=== PATIENT | male | born 1945 | race Caucasian/White ===

== ENCOUNTER 2016-12-27 11:15 | Inpatient (IN) | payer BC, OTHER ==
[2017-01-04] MEDS ORDERED: ceFAZolin 2 GM/DEXTROSE 100 ML IV ONE (06:00)
[2017-01-04] MEDS ORDERED: DEXAMETHASONE 10 MG/ML VIAL IVP ONE (06:00)
[2017-01-10] MEDS ORDERED: CHLORHEXIDINE GLUC HIBICLENS 118 ML BTL TP ONE ×2 (07:00→11:06)
[2017-01-10] MEDS ORDERED: DEXAMETHASONE 10 MG/ML VIAL IVP ONE (07:00)
[2017-01-10] MEDS ORDERED: ceFAZolin 2 GM/DEXTROSE 100 ML IV ONE (07:00)
[2017-01-10] MEDS ORDERED: BUPIVACAINE 0.25% 30 ML SDV ONE (10:28)
[2017-01-10] MEDS ORDERED: CITRATE DEXTROSE SOLN 500 ML BAG ONE (10:28)
[2017-01-10] MEDS ORDERED: THROMBIN (BOVINE) 5,000 UNIT VIAL TP ONE (10:28)
[2017-01-10] MEDS ORDERED: BACITRACIN 50,000 UNITS/10 ML SYR IRR ONE (10:29)
[2017-01-10] MEDS ORDERED: BUPIVACAINE/EPI 0.25% 30 ML SDV ONE (10:29)
[2017-01-10] MEDS ORDERED: PROPOFOL/EMULSION 500 MG/50 ML BOTTLE IV ONE ×2 (10:57→11:42)
[2017-01-10] MEDS ORDERED: LR 1,000 ML IV ONE (11:00)
[2017-01-10] MEDS ORDERED: LIDOCAINE 1% 5 ML SDV ID PRN (11:00)
[2017-01-10] MEDS ORDERED: MIDAZOLAM 2 MG/2 ML VIAL ONE (11:04)
[2017-01-10] MEDS ORDERED: CEFAZOLIN 2 GM/DEXTROSE/100 ML BAG IV ONE (11:07)
[2017-01-10] MEDS ORDERED: DEXAMETHASONE 4 MG/ML VIAL ONE (11:07)
[2017-01-10] MEDS ORDERED: fentaNYL 100 MCG/2 ML INJ ONE ×4 (11:21→15:27)
[2017-01-10] MEDS ORDERED: REMIFENTANIL HCL 1 MG VIAL ONE ×2 (11:40→11:41)
[2017-01-10] MEDS ORDERED: LACTULOSE 20 GM/30 ML UDCUP PO PRN (15:13)
[2017-01-10] MEDS ORDERED: ONDANSETRON 4 MG/2 ML VIAL IVP PRN (15:13)
[2017-01-10] MEDS ORDERED: DIAZEPAM 10 MG/2 ML SYR IVP PRN (15:13)
[2017-01-10] MEDS ORDERED: diphenhydrAMINE 25 MG CAP PO PRN (15:13)
[2017-01-10] MEDS ORDERED: HYDROmorphONE/DILAUDID 1 MG/ML SYR IVP PRN (15:13)
[2017-01-10] MEDS ORDERED: DIAZEPAM 5 MG TAB PO PRN (15:13)
[2017-01-10] MEDS ORDERED: BISACODYL 10 MG SUPP PR PRN (15:13)
[2017-01-10] MEDS ORDERED: ACETAMINOPHEN 325 MG TAB PO PRN (15:13)
[2017-01-10] MEDS ORDERED: HYDROmorphONE/DILAUDID 6 MG/30 ML PCA IV PRN (15:13)
[2017-01-10] MEDS ORDERED: ONDANSETRON DISINTEGRATING 4 MG TAB PO PRN (15:13)
[2017-01-10] MEDS ORDERED: POLYETHYLENE GLYCOL 3350 17 GM PKT PO PRN (15:13)
[2017-01-10] MEDS ORDERED: NALOXONE HCL 0.4 MG/ML INJ IVP PRN (15:13)
[2017-01-10] MEDS ORDERED: MAGNESIUM HYDROXIDE 30 ML UDCUP PO PRN (15:13)
[2017-01-10] MEDS ORDERED: NS W/ 20 KCl/L 1,000 ML IV SCH (15:15)
--- NOTE | 2017-01-10 15:18 | SOAPPROG ---
SOAP Progress Note Assessment/Plan: Assessment: 71 yo M sp C4/5 ACDF and C3-7 laminoplasty Plan: stable to 3N soft collar x-rays in am please call with neuro changes 01/10/17 15:17 Subjective: + neck pain, no arm pain. Objective: somnolent PERRL, no facial droop JOHN x 4 + light touch ICD10 Worksheet Patient Problems: Problems Problem Status Onset Fusion of spine of cervical region Acute - ICD10 Problem Qualifiers (1) Fusion of spine of cervical region
[2017-01-10] MEDS ORDERED: DIAZEPAM 10 MG/2 ML SYR ONE (15:38)
[2017-01-10] MEDS ORDERED: HYDROmorphONE/DILAUDID 1 MG/ML SYR ONE (16:08)
[2017-01-10] MEDS ORDERED: hydrALAZINE 20 MG/ML VIAL IVP ONE (18:00)
[2017-01-10] MEDS: METHOCARBAMOL 750 MG TAB PO PRN (19:32)
[2017-01-10] MEDS: HYDROCODONE/APAP 10/325 TAB PO PRN ×2 (19:32→21:03)
[2017-01-10] MEDS: SENNOSIDES/DOCUSATE SODIUM TAB PO SCH (19:34)
[2017-01-10] MEDS: FAMOTIDINE 20 MG TAB PO SCH (19:34)
[2017-01-10] MEDS ORDERED: FAMOTIDINE 20 MG/NACL 50 ML IV SCH (21:00)
[2017-01-10] MEDS: oxyCODONE IR 5 MG TAB PO PRN (22:31)
[2017-01-11] MEDS: HYDROCODONE/APAP 10/325 TAB PO PRN ×4 (02:36→22:34)
[2017-01-11] MEDS: METHOCARBAMOL 750 MG TAB PO PRN ×2 (02:36→22:34)
[2017-01-11 05:46] LABS: % IMMATURE GRANULYOCYTES 0.7 % (0.0-1.1); ABSOLUTE IMMATURE GRANULOCYTES 0.08 10^3/uL (0.00-0.10); ADD DIFF? NO; ADD MORPH? NO; ADD SCAN? NO; ATYPICAL LYMPHOCYTE FLAG 0 (0-99); FRAGMENT RBC FLAG 0 (0-99); HEMATOCRIT 42.5 % (40.0-51.0); LEFT SHIFT FLG 0 (0-99); LIPEMIA HEMOLYSIS FLAG 80 (0-99); MEAN CELL HEMOGLOBIN 29.3 pg (27.9-34.1); MEAN CELL HEMOGLOBIN CONCENTR. 32.9 g/dL (32.4-36.7); MEAN CELL VOLUME 88.9 fL (81.5-99.8); MEAN PLATELET VOLUME 11.6 fL (8.7-11.7); PLATELET CLUMPS FLAG 0 (0-99); PLATELET COUNT 177 10^3/uL (150-400); RED BLOOD CELL COUNT 4.78 10^6/uL (4.40-6.38); RED CELL DISTRIBUTION WIDTH 14.8 % (11.5-15.2)
[2017-01-11 06:15] LABS: ANION GAP 13 mEq/L (8-16); CALCIUM 8.8 mg/dL (8.5-10.4); CARBON DIOXIDE 21 mEq/l (22-31); CHLORIDE 105 mEq/L (97-110); GLUCOSE 154 mg/dL (70-100); POTASSIUM 4.5 mEq/L (3.5-5.2); SODIUM 139 mEq/L (134-144)
[2017-01-11 06:32] LABS: CREATININE 0.9 mg/dL (0.7-1.3); GLOMERULAR FILTRATION RATE > 60
[2017-01-11] MEDS: oxyCODONE IR 5 MG TAB PO PRN ×4 (06:34→17:12)
--- NOTE | 2017-01-11 07:01 | GOP ---
[f rep st] OPERATIVE REPORT DATE OF OPERATION: 01/10/2017 SURGEON: Herb Hess MD EXPERIMENTAL MACHINING LAB MANAGER: Chris Antonio. ANESTHESIA: General endotracheal. 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 Prior C5-6 fusion with instrumentation. Severe adjacent level degeneration and disk herniation with spinal cord compression at C4-5. 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 Prior C5-6 fusion with instrumentation. Severe adjacent level degeneration and disk herniation with spinal cord compression at C4-5. PROCEDURE PERFORMED: Removal of C5-6 anterior cervical plate with exploration of spinal fusion, and C4-5 complete anterior cervical diskectomy and arthrodesis with an 11 mm structural PEEK interbody spacer, local autograft, and placement of a [employer] anterior cervical plate with self-drilling screws. Use of intraoperative microscopy and fluoroscopy. FINDINGS: ESTIMATED BLOOD LOSS: 75 cc. INDICATIONS: The patient is a 71-year-old man who has a history of a prior C5- 6 instrumented fusion with severe adjacent level degeneration and disk herniation with spinal cord compression at the C4-5 level, and multilevel cervical spondylosis and spinal stenosis with cord compression throughout C3 through C7. He presents now for anterior revision of his prior surgery and posterior decompression and stabilization and laminoplasty for all of the levels , including the fused segments. DESCRIPTION OF PROCEDURE: After informed consent was obtained, the patient was taken to the operating room and placed in the supine position with the head in the halter retractor system. The anterior cervical region was prepped and draped in a sterile fashion. After fluoroscopic localization of the correct levels, the subcutaneous and intramuscular tissues were infiltrated with local anesthesia. A horizontal incision was then created at the level of the C5 vertebral body. This was carried through the platysmal layer using the monopolar cautery in the avascular plane between the sternocleidomastoid and carotid sheath laterally and the strap muscles, trachea, and esophagus medially down to the prevertebral fascia, which was carefully incised with Metzenbaum scissors. There was an extensive amount of scar tissue that was very carefully dissected out and the prior plate was carefully exposed and removed at C5-6. The prior fusion was explored and inspected, and noted to be solid. Following this, the large osteophytes at the C4-5 level were removed, and the Portia distraction pins inserted. Under high-power microscopic visualization, a complete C4-5 anterior cervical diskectomy was then performed with removal of the posterior longitudinal ligament along with an extensive amount of calcified disk material protruding into the spinal canal and causing spinal cord compression. Bilateral foraminotomies were also performed. Following adequate decompression, the remaining endplates were carefully prepared and an appropriately sized 11 mm structural PEEK interbody spacer packed with local autograft in the center was placed at the C4-5 interspace. The distraction was removed and an appropriately size [employer] [place] anterior cervical plate was then placed and secured with self-drilling screws. Following verification of good position, the locking mechanism was engaged and following reverification of good position of the plate, screws, and interbody spacers using biplanar fluoroscopy, the anterior hole of the plate was gently packed with residual autograft. A drain was placed. The subcutaneous and intramuscular tissues were infiltrated with local anesthesia and closed in a layered fashion using interrupted Vicryl sutures followed by Steri-Strips on the skin. COMPLICATIONS: None. DISPOSITION: The patient remained intubated and was repositioned prone. /[id number]/MODL MTDD
--- NOTE | 2017-01-11 07:05 | GOP ---
[f rep st] OPERATIVE REPORT DATE OF OPERATION: 01/10/2017 SURGEON: Herb Hess MD NURSING CONSULTANT: Chris Antonio. ANESTHESIA: General endotracheal. 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 Prior C5-6 fusion with instrumentation. Severe adjacent level degeneratio n and disk herniation with spinal cord compression at C4-5. 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 Prior C5-6 fusion with instrumentation. Severe adjacent level degenerati on and disk herniation with spinal cord compression at C4-5. PROCEDURE PERFORMED: C4 through 6 posterior fusion with C3 through C7 laminoplasty procedure for de compression of spinal canal. FINDINGS: ESTIMATED BLOOD LOSS: 100 cc. DESCRIPTION OF PROCEDURE: After the anterior portion of the procedure was completed, the patient wa s repositioned posteriorly with the head in the [place] head cd reactor operator. The posterior cervical region was prepped and draped in a sterile fashion and after fluoroscopic localization of the correct leve l, the subcutaneous and intramuscular tissues were infiltrated with local anesthesia. A midline bridget ear incision was then created from approximately C3 through C7. This was carried down the fascial l bryan, which was incised using monopolar electrocautery and carried in the subfascial plane along the spinous processes and lamina bilaterally. The facet joint was exposed on the left then on the righ t. Following re-verification of the correct levels, a trough was drilled on the right side between the lamina and facet joint all the way from C3 through C7. Note that this trough left the inner cor tical table intact as a hinge. A second trough was then drilled between the lamina and facet joint at C3 through C7. This went all the way through the inner table of the lamina and following this, e ach lamina was cracked up and the [employer] center piece and grafting system was utilized to perform a laminoplasty with 8 and 6 mm self-drilling screws. Following this, the wound was copiously irrig ated with antibiotic irrigation and meticulous hemostasis was achieved. The facet joints were then drilled out at C4-5 and C5-6 bilaterally and any local autograft from the drilling was placed in tho se joints in order to reinforce the anterior fusion at C4-5 and C5-6. Following the two-level fusio n, the wound was irrigated again and the subcutaneous and intramuscular tissues were re-infiltrated with local anesthesia. A drain was placed and the wound was closed in a layered fashion using inter rupted Vicryl sutures, followed by Steri-Strips on the skin. COMPLICATIONS: None. INDICATIONS FOR PROCEDURE: The patient is a 71-year-old man who has a history of a prior C5-6 instr umented fusion with severe adjacent level degeneration and disk herniation with spinal cord compress ion at the C4-5 level, and multilevel cervical spondylosis and spinal stenosis with cord compression throughout C3 through C7. He presents now for anterior revision of his prior surgery and posterior decompression and stabilization and laminoplasty for all of the levels, including the fused segment s. DISPOSITION: The patient is currently in the process of being repositioned for extubation. /[id number]/MODL
[2017-01-11] MEDS: SENNOSIDES/DOCUSATE SODIUM TAB PO SCH ×2 (09:17→22:34)
[2017-01-11] MEDS: TERAZOSIN HCL 5 MG CAP PO SCH (09:17)
[2017-01-11] MEDS: PANTOPRAZOLE SODIUM 40 MG TAB PO SCH (09:19)
[2017-01-11] MEDS: CYANO/VITAMIN B12 1000 MCG TAB PO SCH (09:21)
[2017-01-11] MEDS: FAMOTIDINE 20 MG TAB PO SCH ×2 (09:21→22:35)
--- NOTE | 2017-01-11 09:55 | NEUSURGPN ---
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 Pain management JAMES drain x 2 - continue D/w Dr John please call with neuro changes Subjective: Pt resting in bed, pain well managed Objective: AAOx3 NAD VSS MAEx4 Motor 5/5 BUE/BLE Incisions cdi dressed JPx2 Gilliam out Urinary Catheter in Place: No Catheter Insertion Date: 01/10/17 - Physician Discussed Patient with DrAjay: Deshawn Neurosurgery Physical Exam - Vitals, I&O, Labs I and O 01/10/17 01/11/17 01/12/17 05:59 05:59 05:59 Intake Total 4485 Output Total 1955 1250 Balance 2530 -1250 Weight 83.915 kg Intake: Oral (ml) 1060 IV Intake (ml) 2425 IV Infused (ml) 1000 NS W/ 20 KCl/L 1,000 ml @ 900 75 mls/hr IV CONT LEFTY Rx #:[id number] ceFAZolin 1 GM/DEXTROSE 100 50 ml @ 200 mls/hr IV Q8H LEFTY Rx#:[id number] Output: Urine (ml) 1575 1250 Catheter 1575 900 Urinal 350 Estimated Blood Loss (ml) 150 Wound Drainage (ml) 230 Anterior Neck Greg 90 Nickerson Posterior Neck Greg 140 Nickerson Other: Intake Quantity Yes Sufficient Number of Voids Urinal 1 Vital Signs Temp Pulse Resp BP Pulse Ox 36.8 C 86 14 137/80 H 92 01/11/17 07:29 01/11/17 07:29 01/11/17 07:29 01/11/17 07:29 01/11/17 07:29 Laboratory Results 01/11/17 04:36 01/11/17 04:36 ICD10 Worksheet Patient Problems: Problems Problem Status Onset Fusion of spine of cervical region Acute
[2017-01-11] MEDS: DUTASTERIDE 0.5 MG CAP PO SCH (10:56)
[2017-01-12] MEDS: oxyCODONE IR 5 MG TAB PO PRN ×3 (03:58→15:10)
[2017-01-12] MEDS: HYDROCODONE/APAP 10/325 TAB PO PRN ×2 (05:10→11:26)
[2017-01-12] MEDS: METHOCARBAMOL 750 MG TAB PO PRN (05:10)
--- NOTE | 2017-01-12 08:45 | SOAPPROG ---
SOAP Progress Note Assessment/Plan: Assessment: 71 yo M POD #3 C4/5 ACDF and C3-7 laminoplasty Plan: stable and doing well overall :) PT/OT soft collar x-rays show good position of hardware likely dc home today please call with neuro changes discussed with Dr Tejada 01/10/17 15:17 01/12/17 08:41 Subjective: continued posterior neck pain, no arm pain, no weakness. Objective: Vital Signs Temp Pulse Resp BP Pulse Ox 36.8 C 92 16 155/91 H 90 L 01/12/17 04:00 01/12/17 04:00 01/12/17 04:00 01/12/17 04:00 01/12/17 04:00 Laboratory Results 01/11/17 04:36 01/11/17 04:36 01/11/17 01/12/17 01/13/17 05:59 05:59 05:59 Intake Total 4485 400 Output Total 1955 3730 Balance 2530 -3330 AAOx4, +FC PERRL, EOMI, no facial droop 5/5 + light touch C/D/I x 2 ICD10 Worksheet Patient Problems: Problems Problem Status Onset Fusion of spine of cervical region Acute - ICD10 Problem Qualifiers (1) Fusion of spine of cervical region
[2017-01-12] MEDS: SENNOSIDES/DOCUSATE SODIUM TAB PO SCH (08:55)
[2017-01-12] MEDS: DUTASTERIDE 0.5 MG CAP PO SCH (08:55)
[2017-01-12] MEDS: PANTOPRAZOLE SODIUM 40 MG TAB PO SCH (08:56)
[2017-01-12] MEDS: FAMOTIDINE 20 MG TAB PO SCH (08:56)
[2017-01-12] MEDS: TERAZOSIN HCL 5 MG CAP PO SCH (08:57)
[2017-01-12] MEDS: CYANO/VITAMIN B12 1000 MCG TAB PO SCH (08:57)
[2017-01-12 11:48] VITALS: BP 147/96; PULSE 95; RESP 14; TEMP 98; O2SAT 90
[2017-01-13] MEDS ORDERED: ENOXAPARIN 40 MG/0.4 ML SYR SC SCH (09:00)
== END 2017-01-12 15:20 | disposition home or self-care (01) | DRG 454 ==
LOC: F3E 01-10 10:05 → F3N 01-10 17:25
PROVIDERS: ADMIT Neurological Surgery; ATTEND Neurological Surgery
DX: M48.02 Spinal stenosis, cervical region (principal); M47.12 Other spondylosis with myelopathy, cervical region; M50.321 Other cervical disc degeneration at C4-C5 level; Z98.1 Arthrodesis status; N40.0 Benign prostatic hyperplasia without lower urinary tract symptoms
CPT/HCPCS: 97161-GP; 97165-GO; C1713; J0360; J0690; J1100; J1170; J2250; J2704; J3010; J7060

== ENCOUNTER → 2017-06-01 | Outpatient (CLI) | payer OTHER ==
[~2017-06-01] MED LIST: DEXAMETHASONE 4 MG/ML VIAL ONE; LIDOCAINE 2% 5 ML SDV ONE; ONDANSETRON 4 MG/2 ML VIAL ONE; PROPOFOL 200 MG/20 ML VIAL ONE; RANITIDINE 50 MG/2 ML VIAL ONE; ROCURONIUM 50 MG/5 ML VIAL ONE; SUGAMMADEX SODIUM 200 MG/2 ML VIAL IVP ONE; ceFAZolin 1 GM VIAL ONE; epHEDrine SULFATE 10 MG/ML SYR ONE
== END ==
LOC: FIMAGING 14:35 → EDSTATUS 14:36
PROVIDERS: ATTEND Physician Assistant Surgical
DX: M50.31 Other cervical disc degeneration, high cervical region (principal); M47.22 Other spondylosis with radiculopathy, cervical region; G95.89 Other specified diseases of spinal cord; Z98.1 Arthrodesis status
CPT/HCPCS: J0690; J1100; J2405; J2704; J2780

== ENCOUNTER 2017-06-02 09:14 | Inpatient (IN) | payer OTHER ==
--- NOTE | 2017-06-02 16:45 | PDGENHP ---
History & Physical Chief Complaint: Low back pain History of Present Illness: Mr Singleton has low back pain. He describes pain in his back with pain in his legs. He had a severe flare up of pain in his legs several weeks ago and his symptoms improved with a lumbar epidural injection. He describes some numbness with some pain in his hamstrings that is worse with driving and standing. He is not having leg weakness or bowel/bladder problems. His pain level is 3-4 (1-10). He describes 20% back pain and 80% leg symptoms. Mr Singleton feels that his balance is off and he has been having some urinary urgency. He has tried Physical Therapy, epidural injections, tylenol, NSAIDs, heat, ice and activity modification with no improvement. His legs numbness is currently worse in his right leg. Pertinent Past, Social, Family History: . family history: cancer and diabetes. Medical History: The previous medical history is significant for osteoarthritis, hearing impaired, kidney stones. . The previous surgical history is significant for: 1. inguinal hernia 2016. 2. fusion C5-C6 2000. 3. right ACL replacement 1997. Social History: Alcohol Consumption: socially. Never Smoked Relevant Physical Exam: Awake, alert, oriented X4. PERRL. No facial droop. 5/ 5 Strength in upper and lower extremities. except his right triceps which is 3/ 5. Normal Sensation in arms and legs. Deep Tendon Reflexes 1+/4 in upper and lower extremities
[2017-06-03] MEDS ORDERED: NS IV ONE (07:56)
[2017-06-03] MEDS ORDERED: ACETAMINOPHEN 500 MG TAB PO ONE (07:56)
[2017-06-03] MEDS ORDERED: TRANEXAMIC ACID IV ONE (07:56)
[2017-06-03] MEDS ORDERED: GABAPENTIN 300 MG CAP PO ONE (07:56)
[2017-06-03] MEDS ORDERED: fentaNYL 100 MCG/2 ML INJ IT ONE (07:56)
[2017-06-03] MEDS ORDERED: ceFAZolin 2 GM/DEXTROSE 100 ML IV ONE (07:56)
[2017-06-03] MEDS ORDERED: morphINE PF 5 MG/10 ML INJ IT ONE (07:56)
[2017-06-03] MEDS ORDERED: LR 1,000 ML IV ONE (07:57)
[2017-06-03] MEDS ORDERED: LIDOCAINE 1% 2 ML INJ ID PRN (07:57)
[2017-06-03 08:23] LABS: % IMMATURE GRANULYOCYTES 0.2 % (0.0-1.1); ABSOLUTE IMMATURE GRANULOCYTES 0.01 10^3/uL (0.00-0.10); ADD DIFF? NO; ADD MORPH? NO; ADD SCAN? NO; ATYPICAL LYMPHOCYTE FLAG 10 (0-99); FRAGMENT RBC FLAG 0 (0-99); HEMATOCRIT 44.5 % (40.0-51.0); HEMOGLOBIN 14.5 g/dL (13.7-17.5); LEFT SHIFT FLG 0 (0-99); LIPEMIA HEMOLYSIS FLAG 80 (0-99); MEAN CELL HEMOGLOBIN 28.7 pg (27.9-34.1); MEAN CELL HEMOGLOBIN CONCENTR. 32.6 g/dL (32.4-36.7); MEAN CELL VOLUME 88.1 fL (81.5-99.8); MEAN PLATELET VOLUME 10.2 fL (8.7-11.7); PLATELET CLUMPS FLAG 0 (0-99); PLATELET COUNT 269 10^3/uL (150-400); RED BLOOD CELL COUNT 5.05 10^6/uL (4.40-6.38); RED CELL DISTRIBUTION WIDTH 14.3 % (11.5-15.2)
[2017-06-03] MEDS ORDERED: THROMBIN (BOVINE) 5,000 UNIT VIAL TP ONE (09:08)
[2017-06-03] MEDS ORDERED: BUPIVACAINE 0.25% 30 ML SDV ONE (09:09)
[2017-06-03] MEDS ORDERED: BACITRACIN 50,000 UNITS/10 ML SYR IRR ONE ×3 (09:09→10:54)
[2017-06-03] MEDS ORDERED: CITRATE DEXTROSE SOLN 500 ML BAG ONE ×2 (09:32→11:47)
[2017-06-03] MEDS ORDERED: fentaNYL 100 MCG/2 ML INJ ONE ×4 (09:44→16:20)
[2017-06-03] MEDS ORDERED: MIDAZOLAM 2 MG/2 ML VIAL ONE (09:44)
[2017-06-03] MEDS ORDERED: PROPOFOL/EMULSION 500 MG/50 ML BOTTLE IV ONE ×2 (09:45→10:37)
[2017-06-03] MEDS ORDERED: DEXMEDETOMIDINE HCL 200 MCG/2 ML VIAL IV ONE (10:29)
[2017-06-03] MEDS ORDERED: ALBUMIN 5% 250 ML BOTTLE IV ONE (10:59)
--- NOTE | 2017-06-03 11:08 | PDANEPAE ---
ANE Past Medical History - Cardiovascular History Hx Hypertension: No Hx Arrhythmias: No Hx Chest Pain: No Hx Coronary Artery / Peripheral Vascular Disease: No Hx CHF / Valvular Disease: No Hx Palpitations: No - Pulmonary History Hx COPD: No Hx Asthma/Reactive Airway Disease: No Hx Recent Upper Respiratory Infection: No Hx Oxygen in Use at Home: No Hx Sleep Apnea: No Sleep Apnea Screening Result - Last Documented: Positive - Neurologic History Hx Cerebrovascular Accident: No Hx Seizures: No Hx Dementia: No Neurologic History Comment: hx of cervical fusion. numbness and tingling to hand and forearm and bilaterally below knees - Endocrine History Hx Diabetes: No - Renal History Hx Renal Disorders: No Renal History Comment: hx of kidney stones. bph - Liver History Hx Hepatic Disorders: No - Neurological & Psychiatric Hx Hx Neurological and Psychiatric Disorders: No - Cancer History Hx Cancer: No Cancer History Comment: pre-cancerous skin cells removed - Congenital Disorder History Hx Congenital Disorders: No - GI History Hx Gastrointestinal Disorders: Yes Gastrointestinal History Comment: diverticulitis episode after ing hernia surgery spent 2 days in hospital afterward. diverticulosis - Other Health History Other Health History: wears glasses. [place]- wears bilaterally hearing aides. permanent bridge - Chronic Pain History Chronic Pain: Yes (shoulders and arms, RIGHT ELBOW) - Surgical History Prior Surgeries: right acl repair 1997. deviated septum. fusion c5-6 2000. ing hernia repair 11/2016. 01/12 C3/4///.FUSION ANE Review of Systems Review of Systems: - Exercise capacity METS (RN): 5 METS ANE Patient History - Allergies Allergies/Adverse Reactions: minoxidil Allergy (Verified 12/28/16 15:14) SWELLING/RASH - Home Medications Home Medications: Dutasteride [Avodart 0.5 MG (*)] 0.5 mg PO HS 12/23/16 [Last Taken Unknown] Esomeprazole Mag Trihydrate [Nexium] 40 mg PO HS 12/23/16 [Last Taken Unknown] Herbals/Supplements -Info Only 1 ea PO DAILY 12/23/16 [Last Taken Unknown] Cyanocobalamin [Vitamin B12 (*)] 5,000 mcg PO DAILY 05/03/17 [Last Taken Unknown ] Multivitamins [Multivitamin (*)] 1 each PO DAILY 05/03/17 [Last Taken Unknown] Terazosin HCl [Hytrin 5 MG (*)] 5 mg PO HS 05/03/17 [Last Taken Unknown] - NPO status NPO Since - Liquids (Date): 06/02/17 NPO Since - Liquids (Time): 20:00 NPO Since - Solids (Date): 06/02/17 NPO Since - Solids (Time): 20:00 - Smoking Hx Smoking Status: Former smoker - Family Anes Hx Family Hx Anesthesia Complications: none ANE Labs/Vital Signs - Labs Result Diagrams: 06/03/17 08:10 - Vital Signs Blood Pressure: 144/89 Heart Rate: 65 Respiratory Rate: 16 O2 Sat (%): 144 Height: 175.26 cm Weight: 83.915 kg ANE Physical Exam - Airway Neck exam: decreased ROM, spinal fusion Mallampati Score: Class 3 Mouth exam: normal dental/mouth exam - Pulmonary Pulmonary: no respiratory distress, no rales or rhonchi, clear to auscultation - Cardiovascular Cardiovascular: regular rate and rhythym, no murmur, rub, or gallop, pulses symmetric bilaterally - ASA Status ASA Status: III ANE Anesthesia Plan Anesthesia Plan: general endotracheal anesthesia Lines/Monitors: arterial line, additional IV Specialized Airway: video laryngoscope
[2017-06-03] MEDS ORDERED: NALOXONE HCL 0.4 MG/ML INJ IVP PRN ×2 (14:32→15:11)
[2017-06-03] MEDS ORDERED: LR 500 ML IV PRN (14:32)
[2017-06-03] MEDS ORDERED: ALBUTEROL 3 ML DEYVIAL IH PRN (14:32)
[2017-06-03] MEDS ORDERED: DEXAMETHASONE 4 MG/ML VIAL IVP PRN (14:32)
[2017-06-03] MEDS ORDERED: ONDANSETRON 4 MG/2 ML VIAL IVP PRN ×2 (14:32→15:11)
[2017-06-03] MEDS ORDERED: MEPERIDINE 25 MG/ML SYR IVP PRN (14:32)
[2017-06-03] MEDS ORDERED: DEXAMETHASONE 4 MG/ML VIAL ONE ×3 (15:08→15:09)
[2017-06-03] MEDS ORDERED: epHEDrine SULFATE 10 MG/ML SYR ONE ×2 (15:08→15:09)
[2017-06-03] MEDS ORDERED: ceFAZolin 1 GM VIAL ONE (15:08)
[2017-06-03] MEDS ORDERED: ONDANSETRON 4 MG/2 ML VIAL ONE (15:08)
[2017-06-03] MEDS ORDERED: ROCURONIUM 50 MG/5 ML VIAL ONE (15:08)
[2017-06-03] MEDS ORDERED: diphenhydrAMINE 25 MG CAP PO PRN (15:11)
[2017-06-03] MEDS ORDERED: ONDANSETRON DISINTEGRATING 4 MG TAB PO PRN (15:11)
[2017-06-03] MEDS ORDERED: BISACODYL 10 MG SUPP PR PRN (15:11)
[2017-06-03] MEDS ORDERED: LACTULOSE 20 GM/30 ML UDCUP PO PRN (15:11)
[2017-06-03] MEDS ORDERED: MAGNESIUM HYDROXIDE 30 ML UDCUP PO PRN (15:11)
[2017-06-03] MEDS ORDERED: morphINE PCA 30 MG/30 ML PCA IV PRN (15:11)
[2017-06-03] MEDS ORDERED: NS W/ 20 KCl/L 1,000 ML IV SCH (15:15)
[2017-06-03] MEDS: fentaNYL 100 MCG/2 ML INJ IVP PRN ×2 (16:22→16:35)
--- NOTE | 2017-06-03 16:46 | GOP ---
[f rep st] OPERATIVE REPORT DATE OF OPERATION: 06/03/2017 SURGEON: Herb Hess MD NEUROSURGEON: Herb Hess MD REMEDIAL MASSEUR: ROMMEL Sethi ANESTHESIA: General endotracheal. PREOPERATIVE DIAGNOSIS: Intractable back pain and right greater than left lower extremity radicular and neurogenic claudication symptoms. Failed conservative care. Severe multilevel lumbar degenerati ve disk disease, loss of normal lordosis, and critical spinal stenosis and lateral recess impingement . POSTOPERATIVE DIAGNOSIS: Intractable back pain and right greater than left lower extremity radicular and neurogenic claudication symptoms. Failed conservative care. Severe multilevel lumbar degenerat jose disk disease, loss of normal lordosis, and critical spinal stenosis and lateral recess impingemen t. PROCEDURE PERFORMED: Right-sided L2-3, L3-4 and L4-5 far lateral transpedicular decompression with L 2 through L5 posterior segmental (pedicle screw and axle device) fixation and posterolateral fusion w ith local autograft and bone morphogenic protein and morselized allograft. L2-3, L3-4 and L4-5 poste rior/transforaminal lumbar interbody fusion with 2 structural PEEK interbody spacers, local autograft and bone morphogenic protein. Use of intraoperative microscopy, fluoroscopy and computer volumetric stereotactic navigation with intraoperative neurophysiologic testing. Injection of intrathecal narc otic analgesics and subcutaneous and intramuscular local anesthesia. FINDINGS: ESTIMATED BLOOD LOSS: 500 cc. INDICATIONS: The patient is a 72-year-old male with intractable low back pain and right greater than left lower extremity radicular and neurogenic claudication symptoms secondary to severe multilevel l umbar degenerative joint disease and critical spinal stenosis with lateral recess impingement. He becerra s failed extensive conservative care and presents now for surgical decompression and stabilization an d realignment of his lumbar lordosis due to the significant loss of normal sagittal alignment. DESCRIPTION OF PROCEDURE: After informed consent was obtained, the patient was taken to the operatin g room and placed in the prone position on the Greg table. The thoracolumbosacral areas were prep ped and draped in sterile fashion. After fluoroscopic localization of the correct levels, the subcut aneous and intramuscular tissues were infiltrated with local anesthesia. A midline linear incision w as then created over the L2 to L5 spinous processes. This was carried down to the fascial layer, whi ch was then incised using monopolar electrocautery and carried in a subperiosteal plane along the spi nous processes and lamina bilaterally. Intraoperative fluoroscopy was then utilized to verify the co rrect levels. Following this, the dissection was carried out over the facet joints. The microscope was then brought in and right-sided far lateral transpedicular decompressions were performed with com plete unroofing of the facet joints and central canal at L2-3, L3-4, and L4-5. The lateral recesses were also decompressed bilaterally as best we could by angling the microscope across the midline, whi le also preserving the left-sided lamina and facet joints structurally. Following this, the exoro system neuronavigational system was brought in and using computer volumetric gabriela reotactic navigation, pedicle screws were placed at L2, L3, L4, and L5 bilaterally. Each individual screw was tested neurophysiologically with monopolar electrostimulation and interpretation of the pot entials by the surgeon. The rods were then placed and secured serially at each individual level unde r distraction, during which time complete diskectomies were performed at L2-3, L3-4, and L4-5. The e ndplates were carefully prepared, and appropriately sized structural PEEK interbody spacers, local au tograft and bone morphogenic protein were placed at each individual interspaces for L2-3, L3-4, and L 4-5 posterior/transforaminal lumbar interbody fusions. Following this, the small individual rods wer e removed and longer rods spanning the entire construct were placed with maximal lordosis in order to prevent flat back syndrome. A slight amount of compression was placed across each interspace in ord er to facilitate bony union and to minimize the potential for posterior graft migration. The wound was then copiously irrigated with antibiotic irrigation again, and meticulous hemostasis wa s achieved. The remaining lamina and facet joints were then extensively decorticated, and the residu al local autograft from the facetectomies along with bone morphogenic protein and morselized allograf t was placed out laterally for posterolateral fusion from L2 through L5. 200 mcg of Duramorph along with 50 mcg of fentanyl was injected intrathecally. A drain was placed. The remaining lamina facet joints were extensively decorticated and the residual local autograft along with bone morphogenic pro tein was placed out laterally for posterolateral fusion from L2 through L5. After re-infiltrating the subcutaneous and intramuscular tissues with local anesthesia, the wound was closed in a layered fashion using interrupted Vicryl sutures followed by Steri-Strips on the skin. COMPLICATIONS: None. DISPOSITION: Patient was extubated and transferred to the recovery room in stable condition. /[id number]/MODL
--- NOTE | 2017-06-03 16:46 | GPROG ---
[f rep st] PROGRESS NOTE POSTOPERATIVE CHECK The patient was seen and examined in the recovery room. He is awake and alert, and moving all his ex tremities well. His vitals are stable. Blood pressure 125/80, heart rate in the 80s, and 98% oxygen saturation. He has a Gilliam in place, and is making good urine. His dressing is clean and dry. His Greg-Nickerson drain is functioning properly with about 20 cc in it so far. /[id number]/MODL
[2017-06-03] MEDS: POLYETHYLENE GLYCOL 3350 17 GM PKT PO SCH ×2 (17:31→21:18)
[2017-06-03] MEDS: ceFAZolin 2 GM/DEXTROSE 100 ML IV SCH (21:11)
[2017-06-03] MEDS: ACETAMINOPHEN 500 MG TAB PO SCH (21:19)
[2017-06-03] MEDS: morphINE SR 15 MG TAB PO SCH (21:20)
[2017-06-03] MEDS: METHOCARBAMOL 750 MG TAB PO PRN (21:20)
[2017-06-03] MEDS: SENNOSIDES/DOCUSATE SODIUM TAB PO SCH (21:20)
[2017-06-03] MEDS: DUTASTERIDE 0.5 MG CAP PO SCH (21:21)
[2017-06-03] MEDS: TERAZOSIN HCL 5 MG CAP PO SCH (21:21)
[2017-06-03] MEDS: FAMOTIDINE 20 MG TAB PO SCH (21:21)
[2017-06-04] MEDS: ACETAMINOPHEN 500 MG TAB PO SCH ×3 (04:17→22:09)
[2017-06-04] MEDS: oxyCODONE IR 5 MG TAB PO PRN ×5 (04:17→23:57)
[2017-06-04] MEDS: METHOCARBAMOL 750 MG TAB PO PRN ×2 (04:17→14:32)
[2017-06-04] MEDS: ceFAZolin 2 GM/DEXTROSE 100 ML IV SCH (04:18)
[2017-06-04 05:14] LABS: % IMMATURE GRANULYOCYTES 0.4 % (0.0-1.1); ABSOLUTE IMMATURE GRANULOCYTES 0.05 10^3/uL (0.00-0.10); ADD DIFF? NO; ADD MORPH? NO; ADD SCAN? NO; ATYPICAL LYMPHOCYTE FLAG 0 (0-99); FRAGMENT RBC FLAG 0 (0-99); HEMATOCRIT 38.2 % (40.0-51.0); HEMOGLOBIN 12.5 g/dL (13.7-17.5); LEFT SHIFT FLG 0 (0-99); LIPEMIA HEMOLYSIS FLAG 80 (0-99); MEAN CELL HEMOGLOBIN 28.7 pg (27.9-34.1); MEAN CELL HEMOGLOBIN CONCENTR. 32.7 g/dL (32.4-36.7); MEAN CELL VOLUME 87.6 fL (81.5-99.8); MEAN PLATELET VOLUME 10.8 fL (8.7-11.7); PLATELET CLUMPS FLAG 0 (0-99); PLATELET COUNT 260 10^3/uL (150-400); RED BLOOD CELL COUNT 4.36 10^6/uL (4.40-6.38); RED CELL DISTRIBUTION WIDTH 14.3 % (11.5-15.2)
[2017-06-04 05:30] LABS: ANION GAP 11 mEq/L (8-16); CALCIUM 9.1 mg/dL (8.5-10.4); CARBON DIOXIDE 22 mEq/l (22-31); CHLORIDE 106 mEq/L (97-110); GLOMERULAR FILTRATION RATE > 60; GLUCOSE 117 mg/dL (70-100); POTASSIUM 4.8 mEq/L (3.5-5.2); SODIUM 139 mEq/L (134-144)
[2017-06-04] MEDS: FAMOTIDINE 20 MG TAB PO SCH ×2 (08:08→20:31)
[2017-06-04] MEDS: MULTIVITAMINS 1 EACH TAB PO SCH (08:08)
[2017-06-04] MEDS: PANTOPRAZOLE SODIUM 40 MG TAB PO SCH (08:08)
[2017-06-04] MEDS: CYANO/VITAMIN B12 1000 MCG TAB PO SCH (08:09)
[2017-06-04] MEDS: POLYETHYLENE GLYCOL 3350 17 GM PKT PO SCH ×3 (08:10→22:09)
[2017-06-04] MEDS: ENOXAPARIN 40 MG/0.4 ML SYR SC SCH (08:10)
[2017-06-04] MEDS: morphINE SR 15 MG TAB PO SCH ×2 (08:10→20:31)
[2017-06-04] MEDS: SENNOSIDES/DOCUSATE SODIUM TAB PO SCH ×2 (08:10→20:31)
--- NOTE | 2017-06-04 09:12 | SOAPPROG ---
SOAP Progress Note Assessment/Plan: Assessment: 72 yo male s/p L2-5 TLIF Doing well Pain controlled Plan: PT/PT Continue JAMES drain Lovenox to start today. LSO when OOB lumbar xrays today Subjective: sitting in bedside chair. Pain controlled feeling good Objective: Vital Signs Temp Pulse Resp BP Pulse Ox 36.7 C 67 16 121/72 H 92 06/04/17 04:00 06/04/17 08:15 06/04/17 08:15 06/04/17 08:15 06/04/17 08:15 Laboratory Results 06/04/17 04:31 06/04/17 04:31 06/03/17 06/04/17 06/05/17 05:59 05:59 05:59 Intake Total 2395 Output Total 1425 1050 Balance 970 -1050 Neuro: HAAS, Sens +LT follows commands LSO in place JAMES: 385 ml since surgery ICD10 Worksheet Patient Problems: Problems Problem Status Onset Fusion of spine of cervical region Acute
--- NOTE | 2017-06-04 12:43 | ASMTCMCOM ---
CM Note CM Note Notes: Pt had back surgery. Anticipate pt will DC with no needs. CM available if needs change. Date Signed: 06/04/2017 12:42 PM Electronically Signed By:Laya Sin LCSW
[2017-06-04] MEDS ORDERED: FLU VACC QS 2017-18 (3YR+)/PF 0.5 ML SYR (FLUARIX QUAD) IM ONE (15:14)
--- NOTE | 2017-06-04 19:32 | POSTANESTH ---
Post Anesthetic Evaluation Cardiovascular Status: Normal, Stable Respiratory Status: Normal, Stable Level of Consciousness/Mental Status: Mildly Sleepy, Arousable Pain Control: Adequate, Prn Tx Ordered Nausea/Vomiting Control: Adequate, Prn Tx Ordered Complications Possibly Related to Anesthesia: None Noted
[2017-06-04] MEDS: TERAZOSIN HCL 5 MG CAP PO SCH (20:31)
[2017-06-04] MEDS: DUTASTERIDE 0.5 MG CAP PO SCH (20:32)
[2017-06-04] MEDS: DIAZEPAM 5 MG TAB PO PRN (22:13)
[2017-06-05] MEDS: METHOCARBAMOL 750 MG TAB PO PRN ×2 (03:41→14:20)
[2017-06-05] MEDS: oxyCODONE IR 5 MG TAB PO PRN ×4 (03:42→20:12)
[2017-06-05] MEDS: ACETAMINOPHEN 500 MG TAB PO SCH ×3 (05:37→20:13)
[2017-06-05] MEDS: ENOXAPARIN 40 MG/0.4 ML SYR SC SCH (08:25)
[2017-06-05] MEDS: morphINE SR 15 MG TAB PO SCH ×2 (08:26→20:13)
[2017-06-05] MEDS: MULTIVITAMINS 1 EACH TAB PO SCH (08:27)
[2017-06-05] MEDS: SENNOSIDES/DOCUSATE SODIUM TAB PO SCH ×2 (08:27→20:14)
[2017-06-05] MEDS: PANTOPRAZOLE SODIUM 40 MG TAB PO SCH (08:27)
[2017-06-05] MEDS: FAMOTIDINE 20 MG TAB PO SCH ×2 (08:28→20:13)
[2017-06-05] MEDS: CYANO/VITAMIN B12 1000 MCG TAB PO SCH (08:28)
[2017-06-05] MEDS: POLYETHYLENE GLYCOL 3350 17 GM PKT PO SCH ×3 (08:29→20:16)
--- NOTE | 2017-06-05 11:35 | SOAPPROG ---
SOAP Progress Note Assessment/Plan: Assessment: 72 yo male s/p L2-5 TLIF Doing well. Pain controlled Plan: PT/PT Continue JAMES drain He is on Lovenox LSO when OOB lumbar xrays today 06/05/17 11:32 Subjective: asleep, wakes easily and states pain is controlled Objective: Vital Signs Temp Pulse Resp BP Pulse Ox 36.6 C 79 16 117/75 94 06/05/17 08:00 06/05/17 08:00 06/05/17 08:00 06/05/17 08:00 06/05/17 08:00 Laboratory Results 06/04/17 04:31 06/04/17 04:31 06/04/17 06/05/17 06/06/17 05:59 05:59 05:59 Intake Total 2395 650 Output Total 1425 2860 205 Balance 970 -2210 -205 LUmbar xrays show well positioned hardware Neuro: HAAS, sens +LT ambulatory JAMSE: 30 ml ICD10 Worksheet Patient Problems: Problems Problem Status Onset Fusion of spine of cervical region Acute
[2017-06-05] MEDS: DIAZEPAM 5 MG TAB PO PRN (20:12)
[2017-06-05] MEDS: DUTASTERIDE 0.5 MG CAP PO SCH (20:12)
[2017-06-05] MEDS: TERAZOSIN HCL 5 MG CAP PO SCH (20:13)
[2017-06-06] MEDS: METHOCARBAMOL 750 MG TAB PO PRN ×3 (02:42→18:44)
[2017-06-06] MEDS: oxyCODONE IR 5 MG TAB PO PRN ×4 (02:42→21:35)
[2017-06-06] MEDS: ACETAMINOPHEN 500 MG TAB PO SCH ×3 (05:07→21:33)
--- NOTE | 2017-06-06 07:59 | SOAPPROG ---
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 Objective: Vital Signs Temp Pulse Resp BP Pulse Ox 36.6 C 94 16 125/70 H 95 06/06/17 04:00 06/06/17 04:00 06/06/17 04:00 06/06/17 04:00 06/06/17 04:00 Laboratory Results 06/04/17 04:31 06/04/17 04:31 06/05/17 06/06/17 06/07/17 05:59 05:59 05:59 Intake Total 650 1000 Output Total 2860 885 Balance -2210 115 AAOx4, +FC PERRL, EOMI, no facial droop 5/5 + light touch C/D/I ICD10 Worksheet Patient Problems: Problems Problem Status Onset Fusion of spine of cervical region Acute
[2017-06-06] MEDS: morphINE SR 15 MG TAB PO SCH ×2 (09:58→21:33)
[2017-06-06] MEDS: CYANO/VITAMIN B12 1000 MCG TAB PO SCH (09:58)
[2017-06-06] MEDS: MULTIVITAMINS 1 EACH TAB PO SCH (09:58)
[2017-06-06] MEDS: SENNOSIDES/DOCUSATE SODIUM TAB PO SCH ×2 (09:58→21:33)
[2017-06-06] MEDS: PANTOPRAZOLE SODIUM 40 MG TAB PO SCH (09:58)
[2017-06-06] MEDS: ENOXAPARIN 40 MG/0.4 ML SYR SC SCH (09:58)
[2017-06-06] MEDS: POLYETHYLENE GLYCOL 3350 17 GM PKT PO SCH ×2 (09:58→15:50)
[2017-06-06] MEDS: FAMOTIDINE 20 MG TAB PO SCH ×2 (09:58→21:33)
--- NOTE | 2017-06-06 16:26 | ASMTCMCOM ---
CM Note CM Note Notes: Pt requests referral sent to [facility], pt accepted and [facility] will pursue insurance auth. Date Signed: 06/06/2017 04:26 PM Electronically Signed By:SHERYL Keita
[2017-06-06] MEDS: DUTASTERIDE 0.5 MG CAP PO SCH (21:33)
[2017-06-06] MEDS: DIAZEPAM 5 MG TAB PO PRN (21:33)
[2017-06-06] MEDS: TERAZOSIN HCL 5 MG CAP PO SCH (21:34)
[2017-06-07] MEDS: POLYETHYLENE GLYCOL 3350 17 GM PKT PO SCH ×4 (00:09→22:34)
[2017-06-07] MEDS: oxyCODONE IR 5 MG TAB PO PRN ×2 (01:57→06:01)
[2017-06-07] MEDS: METHOCARBAMOL 750 MG TAB PO PRN ×2 (01:57→15:15)
[2017-06-07] MEDS: ACETAMINOPHEN 500 MG TAB PO SCH ×3 (06:01→23:45)
[2017-06-07] MEDS: SENNOSIDES/DOCUSATE SODIUM TAB PO SCH ×2 (08:43→19:50)
[2017-06-07] MEDS: PANTOPRAZOLE SODIUM 40 MG TAB PO SCH (08:43)
[2017-06-07] MEDS: FAMOTIDINE 20 MG TAB PO SCH ×2 (08:44→19:51)
[2017-06-07] MEDS: ENOXAPARIN 40 MG/0.4 ML SYR SC SCH (08:55)
[2017-06-07 09:25] LABS: HEMATOCRIT 40.3 % (40.0-51.0); HEMOGLOBIN 13.2 g/dL (13.7-17.5); MEAN CELL HEMOGLOBIN 28.7 pg (27.9-34.1); MEAN CELL HEMOGLOBIN CONCENTR. 32.8 g/dL (32.4-36.7); MEAN CELL VOLUME 87.6 fL (81.5-99.8); RED BLOOD CELL COUNT 4.6 10^6/uL (4.40-6.38); RED CELL DISTRIBUTION WIDTH 14.4 % (11.5-15.2)
[2017-06-07 09:46] LABS: ANION GAP 9 mEq/L (8-16); CALCIUM 9.6 mg/dL (8.5-10.4); CARBON DIOXIDE 28 mEq/l (22-31); CHLORIDE 97 mEq/L (97-110); CREATININE 0.9 mg/dL (0.7-1.3); GLOMERULAR FILTRATION RATE > 60; GLUCOSE 124 mg/dL (70-100); POTASSIUM 4.2 mEq/L (3.5-5.2); SODIUM 134 mEq/L (134-144)
[2017-06-07] MEDS: MULTIVITAMINS 1 EACH TAB PO SCH (10:59)
[2017-06-07] MEDS: CYANO/VITAMIN B12 1000 MCG TAB PO SCH (10:59)
[2017-06-07] MEDS: morphINE SR 15 MG TAB PO SCH ×2 (11:40→22:34)
--- NOTE | 2017-06-07 16:27 | ASMTCMCOM ---
CM Note CM Note Notes: [facility] has insurance auth so pt can d/c when medically stable. Date Signed: 06/07/2017 04:26 PM Electronically Signed By:SHERYL Keita
[2017-06-07] MEDS: TERAZOSIN HCL 5 MG CAP PO SCH (19:50)
[2017-06-07] MEDS: DIAZEPAM 5 MG TAB PO PRN (19:51)
[2017-06-07] MEDS: DUTASTERIDE 0.5 MG CAP PO SCH (19:51)
[2017-06-07] MEDS: CALCIUM CARBONATE 500 MG CHEWABLE TAB PO PRN ×2 (21:28→23:46)
[2017-06-07 23:57] VITALS: RESP 16
[2017-06-08] MEDS: ACETAMINOPHEN 500 MG TAB PO SCH ×2 (05:33→15:12)
[2017-06-08] MEDS: MULTIVITAMINS 1 EACH TAB PO SCH (09:19)
[2017-06-08] MEDS: CYANO/VITAMIN B12 1000 MCG TAB PO SCH (09:19)
[2017-06-08] MEDS: FAMOTIDINE 20 MG TAB PO SCH (09:20)
[2017-06-08] MEDS: SENNOSIDES/DOCUSATE SODIUM TAB PO SCH (09:20)
[2017-06-08] MEDS: POLYETHYLENE GLYCOL 3350 17 GM PKT PO SCH ×2 (09:20→17:38)
[2017-06-08] MEDS: PANTOPRAZOLE SODIUM 40 MG TAB PO SCH (09:20)
[2017-06-08] MEDS: ENOXAPARIN 40 MG/0.4 ML SYR SC SCH (09:23)
[2017-06-08] MEDS: morphINE SR 15 MG TAB PO SCH (09:27)
--- NOTE | 2017-06-08 15:56 | SOAPPROG ---
SOAP Progress Note Assessment/Plan: Assessment: 72 yo male s/p L2-5 TLIF Doing well. Pain controlled had several BMs Plan: PT/OT DC JAMES today He is on Lovenox LSO when OOB DC to rehab Discussed with Dr. Tejada 06/08/17 15:56 Subjective: lying in bed comfortable. Denies new issues or pain. Objective: Vital Signs Temp Pulse Resp BP Pulse Ox 36.7 C 81 16 122/75 H 90 L 06/08/17 04:04 06/08/17 08:01 06/08/17 08:01 06/08/17 08:01 06/08/17 08:01 Laboratory Results 06/07/17 09:15 06/07/17 09:15 06/07/17 06/08/17 06/09/17 05:59 05:59 05:59 Intake Total 1400 1400 Output Total 290 220 Balance 1110 1180 Neuro: HAAS, sens+LT ambulatory Incision: CDI JAMES: 20ml - will DC today. ICD10 Worksheet Patient Problems: Problems Problem Status Onset Fusion of spine of cervical region Acute
--- NOTE | 2017-06-08 16:00 | SOAPPROG ---
Downtime Inpatient MD Late Entry SOAP Note: Due to computer downtime, I am recreating the following medical record entry as of this date and time based on the information specified below: Information on which this medical record entry is based: (MD: Please list items, such as nursing notes, labs, imaging, etcetera) Mr. Singleton was seen on 06/07/17 S: awake, alert, but feeling poorly with nausea O: HAAS, Sens +LT, ambulatory. Dressing: CDI: JAMES still productive. VSS, afebrile WBC: 11.5, Na: 134 K+:4.2 H/H 13/40 A: s/p L2-5 TLIF POD #4. New nausea and malaise possibly 2/2 constipation. Abdominal xray demonstrated mild to moderate ileus, but patient is taking PO and had BM P: continue regular diet, encourage activity. continue JAMES drain. Discussed with Dr. Tejada
--- NOTE | 2017-06-08 16:12 | PDIAF ---
- Diagnosis Diagnosis: Lumbar DJD, stenosis Code Status: Full Code - Medication Management Discharge Medications: Medications to Continue on Transfer Dutasteride [Avodart 0.5 MG (*)] 0.5 mg PO HS 12/23/16 [Last Taken Unknown] Esomeprazole Mag Trihydrate [Nexium] 40 mg PO HS 12/23/16 [Last Taken Unknown] Cyanocobalamin [Vitamin B12 (*)] 5,000 mcg PO DAILY 05/03/17 [Last Taken Unknown ] Multivitamins [Multivitamin (*)] 1 each PO DAILY 05/03/17 [Last Taken Unknown] Terazosin HCl [Hytrin 5 MG (*)] 5 mg PO HS 05/03/17 [Last Taken Unknown] Acetaminophen [Tylenol ES 500 mg (*)] 1,000 mg PO Q8HRS tab 06/08/17 [Last Taken Unknown] Calcium Carbonate [Tums 500MG (*)] 500 - 1,000 mg PO Q2 PRN tab.chew 06/08/17 [ Last Taken Unknown] Diazepam [Valium 5 MG (*)] 5 mg PO Q6HRS PRN tab 06/08/17 [Last Taken Unknown] Methocarbamol [Robaxin 750 mg (*)] 750 mg PO QID PRN #60 tab 06/08/17 [Last Taken Unknown] Ondansetron HCl Pf [Zofran 4 mg Inj (*)] 4 mg IVP Q4HRS PRN vial 06/08/17 [ Last Taken Unknown] Polyethylene Glycol 3350 [Miralax 17 gm (*)] 17 gm PO TID pkt 06/08/17 [Last Taken Unknown] Sennosides/Docusate Sodium [Senokot-S] 1 - 2 tab PO BID tab 06/08/17 [Last Taken Unknown] diphenhydrAMINE [Benadryl 25 MG (*)] 25 - 50 mg PO Q6HRS PRN cap 06/08/17 [ Last Taken Unknown] morphINE SR [Ms Contin/Oramorph 15 mg (*)] 15 mg PO BID #30 tab 06/08/17 [Last Taken Unknown] oxyCODONE IR [Oxycodone Ir (*)] 5 - 10 mg PO Q4HRS PRN #60 tab 06/08/17 [Last Taken Unknown] Discharge Medications: Refer to the Discharge Home Medication list for PRN reason. - Orders Services needed: Registered Nurse, Certified Panel Saw Operator, Physical Therapy, Occupational Therapy Diet Recommendation: no restrictions on diet Diet Texture: Regular Texture Diet Gilliam: No Familia Stockings Discontinue Date: continue for 1 week after discharge Wound Care Instructions: monitor incision daily. Call Dr. Hess's office with any drainage, redness pain. Activity/Weight Bearing Restrictions: no bending, twisting or lifting over 10 lbs x 6 weeks. Wear LSO when out of bed Equipment: LSO brace - Follow Up Care Current Providers and Referrals: YORDY SHAH [Other]
[2017-06-08 16:26] VITALS: BP 145/92; PULSE 97; TEMP 98.6; O2SAT 93
[2017-06-08] MEDS: METHOCARBAMOL 750 MG TAB PO PRN (17:22)
--- NOTE | 2017-06-09 10:34 | ASDISCHSUM ---
Discharge Information Plan Status:SNF Medically Cleared to Leave: Discharge Date:06/08/2017 06:01 PM D/C Disposition:[facility] Facility ADT D/C Disposition:[facility] Facility Projected Discharge Date:06/08/2017 11:00 AM Transportation at D/C:Wheelchair Van Discharge Delay Reason: Follow-Up Date:06/08/2017 11:00 AM Discharge Slot: Final Diagnosis: Placement Information Referral Type:*Halfway/SNF Referral ID:[id number] Provider Name:[facility] Address 1:[address] Address 2: City:[place] Selection Factors: State:[place] Patient Contact Information Contact Name:CHICHI Relationship: Address: Work Phone: City: [facility] Phone: [facility] Code: Email: Financial Information Financial Class:Medicare Advantage Plans Primary Plan Desc:[employer] ADVANTAGE Primary Plan Number:[id number] Secondary Plan Desc: Secondary Plan Number: Assessment Information [facility] CM Progress Note CM Note CM Note Notes: Pt had back surgery. Anticipate pt will DC with no needs. CM available if needs change. Date Signed: 06/04/2017 12:42 PM Electronically Signed By:Laya Sin LCSW [facility] CM Progress Note CM Note CM Note Notes: Pt requests referral sent to [facility], pt accepted and [facility] will pursue insurance auth. Date Signed: 06/06/2017 04:26 PM Electronically Signed By:SHERYL Keita BC CM Progress Note CM Note CM Note Notes: [facility] has insurance auth so pt can d/c when medically stable. Date Signed: 06/07/2017 04:26 PM Electronically Signed By:SHERYL Keita BC CM Progress Note CM Note CM Note Notes: Yesterday pt was medically stable for d/c to [facility]. Transport at 1730, orders sent. Date Signed: 06/09/2017 10:33 AM Electronically Signed By:SHERYL Keita Intervention Information
--- NOTE | 2017-06-09 10:34 | ASMTCMCOM ---
CM Note CM Note Notes: Yesterday pt was medically stable for d/c to [facility]. Transport at 1730, orders sent. Date Signed: 06/09/2017 10:33 AM Electronically Signed By:SHERYL Keita
== END 2017-06-08 18:01 | DRG 455 ==
LOC: F3N 06-03 07:21
PROVIDERS: ADMIT Neurological Surgery; ATTEND Neurological Surgery
PROC: 0SG10AJ Fusion of 2 or more Lumbar Vertebral Joints with Interbody Fusion Device, Posterior Approach, Anterior Column, Open Approach (ICD-10-PCS; principal; 2017-06-03 09:30)
PROC: 0SG1071 Fusion of 2 or more Lumbar Vertebral Joints with Autologous Tissue Substitute, Posterior Approach, Posterior Column, Open Approach (ICD-10-PCS; principal; 2017-06-03 09:30)
PROC: 01NB0ZZ Release Lumbar Nerve, Open Approach (ICD-10-PCS; principal; 2017-06-03 09:30)
PROC: 8E0WXBF Computer Assisted Procedure of Trunk Region, With Fluoroscopy (ICD-10-PCS; principal; 2017-06-03 09:30)
PROC: 4A1004G Monitoring of Central Nervous Electrical Activity, Intraoperative, Open Approach (ICD-10-PCS; principal; 2017-06-03 09:30)
DX: M51.16 Intervertebral disc disorders with radiculopathy, lumbar region (principal); M48.062 Spinal stenosis, lumbar region with neurogenic claudication; K57.90 Diverticulosis of intestine, part unspecified, without perforation or abscess without bleeding; Z98.1 Arthrodesis status; Z23 Encounter for immunization
CPT/HCPCS: 97116-GP; 97161-GP; 97165-GO; 97530-GP; 97535-GO; C1713; C1762; G0008; G8978-GP-CJ; G8979-GP-CI; G8987-GO-CK; G8988-GO-CI; G8989-GO-CI; J0690; J1100; J1650; J2250; J2405; J2704; J3010; J7060; P9041